=== PATIENT | male | born 1960 | race Caucasian/White ===

== ENCOUNTER 2019-09-17 10:02 | Outpatient (CLI) | payer OTHER ==
[2019-09-17] MEDS ORDERED: OMNIPAQUE 350 MG/ML, 100ML BOTTLE ONE (16:07)
== END 2019-09-17 23:59 | disposition home or self-care (01) ==
LOC: CFH 10:02
PROVIDERS: ATTEND Surgery
DX: K57.30 Diverticulosis of large intestine without perforation or abscess without bleeding (principal); K43.9 Ventral hernia without obstruction or gangrene; R14.0 Abdominal distension (gaseous); J84.10 Pulmonary fibrosis, unspecified; K44.9 Diaphragmatic hernia without obstruction or gangrene; K76.0 Fatty (change of) liver, not elsewhere classified; R10.30 Lower abdominal pain, unspecified
CPT/HCPCS: 74177; Q9967